=== PATIENT | male | born 1950 | race Caucasian/White ===

== ENCOUNTER 2017-03-03 23:00 | Emergency (ER) | payer OTHER ==
[~2017-03-03] VITALS: Ht 170.2 cm; Wt 92.0 kg
[~2017-03-03 23:00] MED LIST: ASPIRIN EC325 MG PO; ASPIRIN81 M1 PO; CARDIZEM CD180 MG PO; CARDIZEM60 MG PO; CELEXA20 MG PO; DIOVAN80 MG PO; Imitrex PO; Motrin PO; PROPRANOLOL HCL40 MG PO; ZOMIG2.5 MG PO
[2017-03-03 23:24] LABS: HEMATOCRIT 45.3 % (38.0-50.0); MCH 31.3 PG (29.0-34.0); MCHC 34.9 G/DL (30.0-36.0); MCV 89.9 FL (86-99); MEAN PLAT.VOLUME 9.2 uM^3 (9.0-12.4); PLATELET COUNT 271 K/uL (156-360); RBC DIS.WIDTH-CV 11.9 % (11.8-14.6); RED BLOOD COUNT 5.04 M/uL (4.00-5.50)
[2017-03-03 23:42] LABS: CHLORIDE 105 mEq/L (99-109); POTASSIUM 4.4 mEq/L (3.7-5.4); SODIUM 142 mEq/L (136-147)
[2017-03-03 23:44] LABS: GLUCOSE 147 mg/dL (70-99)
[2017-03-03 23:45] LABS: ANION GAP 12 MEQ/L (2-14)
[2017-03-03 23:47] LABS: GFR ESTIMATE (CALCULATED) 59 mL/min/
[2017-03-03 23:48] LABS: UREA NITROGEN (BUN) 21 mg/dL (9-23)
[2017-03-04 00:25] LABS: ADD MIUA? YES; BILIRUBIN NEGATIVE; BLOOD LARGE; COLOR AMBER ((YELLOW)); GLUCOSE (STRIP) NEGATIVE; KETONES NEGATIVE; LEUKOCYTES NEGATIVE; NITRITE NEGATIVE; PROTEIN (STRIP) 100; SPECIFIC GRAVITY 1.021 (1.000-1.030); UROBILINOGEN 0.2 MG/DL (0.2-1.0)
[2017-03-04 00:53] LABS: BACTERIA NONE SEEN /HPF; EPITHELIAL CELLS NONE SEEN /HPF; MUCUS NONE SEEN /LPF; RED BLOOD CELLS TNTC /HPF (0-5); UCUL ADDED? NO; WHITE BLOOD CELLS 0-5 /HPF (0-5)
[2017-03-04] MEDS ORDERED: MOTRIN600 MG PO (02:40)
[2017-03-04] MEDS ORDERED: ZOFRAN4 MG PO (02:41)
[2017-03-04] MEDS ORDERED: PERCOCET 5/31 TABLET PO (02:41)
[2017-03-04 02:52] VITALS: BP 149/81
== END 2017-03-04 03:14 | disposition home or self-care (01) ==
LOC: EME 23:00
DX: N13.2 Hydronephrosis with renal and ureteral calculous obstruction (principal); R31.9 Hematuria, unspecified; Z79.82 Long term (current) use of aspirin; I10 Essential (primary) hypertension; Z87.442 Personal history of urinary calculi
CPT/HCPCS: 74176; 80048; 81003; 85027; 99281; 99284

== ENCOUNTER 2017-06-24 11:13 | Day surgery (SDC) | payer OTHER ==
[~2017-06-24] VITALS: Ht 170.2 cm; Wt 90.7 kg
[~2017-06-24 11:13] MED LIST changes: +MOTRIN600 MG PO; +PERCOCET 5/31 TABLET PO; +XARELTO10 MG PO; +ZOFRAN4 MG PO
[2017-06-24 12:07] VITALS: BP 150/92
[2017-06-24 14:25] VITALS: BP 164/95
[2017-06-24 15:35] VITALS: BP 159/87
== END 2017-06-24 15:35 | disposition home or self-care (01) ==
LOC: SDC 11:13
PROVIDERS: Urology
DX: N20.1 Calculus of ureter (principal); I10 Essential (primary) hypertension; G47.33 Obstructive sleep apnea (adult) (pediatric); G40.909 Epilepsy, unspecified, not intractable, without status epilepticus; E66.9 Obesity, unspecified; Z68.31 Body mass index [BMI] 31.0-31.9, adult; Z88.0 Allergy status to penicillin; Z87.891 Personal history of nicotine dependence
CPT/HCPCS: 74000; 82365 90; C2625; J0690; J1885; J3010; J7050